=== PATIENT | female | born 1985 | race Native Hawaiian/Other Pacific Islander ===

== ENCOUNTER 2018-03-13 20:51 | Outpatient (CLI) | payer SELFPAY ==
[2018-03-13 21:30] VITALS: BP 118/64
--- NOTE | 2018-03-14 16:12 | Event Note ---
Date: 03/13/18 33 year old presented to L&D triage to rule out labor. EDC 04/04/18. EGA 36 weeks, 5 days gestation. Patient reports intermittent contractions. Patient denies vaginal bleeding or leaking of fluid. Patient reports active movement. NST reactive, category 1. Cervix 0/30/-3. Patient found not to be in labor. Patient was discharged home with labor precautions and advice to follow up with [facility] on Thursday.
== END 2018-03-13 21:54 | disposition home or self-care (01) ==
LOC: TRG 20:51 → LD 20:52 → TRG 21:54
PROVIDERS: ATTEND Obstetrics & Gynecology
DX: O47.03 False labor before 37 completed weeks of gestation, third trimester (principal); Z3A.36 36 weeks gestation of pregnancy
CPT/HCPCS: 59025

== ENCOUNTER 2018-03-24 07:32 | Inpatient (IN) | payer OTHER ==
[2018-03-24] MEDS ORDERED: PITOCin/NS 20 UNIT/1000ML DRIP 20,000 MILLIUNITS/1,000 ML BAG IV ONE (07:53)
[2018-03-24] MEDS ORDERED: LACTATED RINGERS 1,000 ML ONE (07:53)
[2018-03-24] MEDS ORDERED: MINERAL OIL ONE (07:54)
[2018-03-24] MEDS ORDERED: METHERGINE IM ONE (07:54)
[2018-03-24] MEDS ORDERED: XYLOCAINE 2% INFILTRATI ONE ×2 (07:54→09:36)
[2018-03-24] MEDS ORDERED: LACTATED RINGERS 1,000 ML IV SCH ×2 (08:30→10:00)
[2018-03-24] MEDS ORDERED: SUBLIMAZE IV NR (08:30)
[2018-03-24 08:36] LABS: Basophils % (Auto) 0.3 % (0.0-1.8); Eosinophils # (Auto) 0.1 K/mm3 (0.0-0.4); Hematocrit 34.2 % (30.3-42.9); Hemoglobin 10.5 gm/dl (10.1-14.3); Lymphocytes # (Auto) 2.5 K/mm3 (1.2-5.4); Lymphocytes % (Auto) 28.8 % (13.4-35.0); Mean Corpuscular HGB Conc 31 % (30-34); Monocytes # (Auto) 0.7 K/mm3 (0.0-0.8); Monocytes % (Auto) 7.8 % (0.0-7.3); Platelet Count 241 K/mm3 (140-440); Red Blood Count 5.11 M/mm3 (3.65-5.03)
[2018-03-24 08:48] LABS: Mean Corpuscular Hemoglobin 21 pg (28-32); Mean Corpuscular Volume 67 fl (79-97)
[2018-03-24] MEDS ORDERED: BRETHINE SUB-Q PRN (09:36)
[2018-03-24] MEDS ORDERED: BRETHINE IVP PRN (09:36)
[2018-03-24] MEDS ORDERED: MINERAL OIL PO PRN (09:36)
--- NOTE | 2018-03-24 09:43 | History and Physical Report ---
History of Present Illness Date of examination: 03/24/18 Date of admission: 03/24/18 07:42 Chief complaint: My water broke at 0630 this morning and having intense labor pains History of present illness: Early entry into care at [facility], course complicated by a abnormal 2 hour GTT; patient was keeping glucose log and following GDM Diet. Past History Past Medical History: no pertinent history Past Surgical History: no surgical history Family/Genetic History: diabetes, hypertension (mother) Social history: no significant social history - Obstetrical History Expected Date of Delivery: 04/04/18 Actual Gestation: 38 Week(s) 3 Day(s) : 3 Para: 1 Hx # Term Pregnancies: 1 Spontaneous Abortions: 1 Number of Living Children: 1 Medications and Allergies Allergies Allergy/AdvReac Type Severity Reaction Status Date / Time Penicillins Allergy Swelling Verified 02/06/14 01:02 Home Medications Medication Instructions Recorded Confirmed Last Taken Type Vits96/Iron Fum/Folic 1 each PO QDAY 02/06/14 03/08/14 03/07/14 06:00 History [ Tablet] Active Meds: Active Medications Fentanyl (Sublimaze) 100 mcg IV ONCE NR Stop: 03/24/18 10:30 Lactated Ringer's (Lactated Ringers) 1,000 mls @ 125 mls/hr IV DIRECT PATRICIA Review of Systems All systems: negative - Vital Signs Vital signs: Vital Signs Pulse BP Pulse Ox 75 132/84 99 03/24/18 07:42 03/24/18 07:42 03/24/18 07:42 Temp Pulse Resp BP Pulse Ox 97.8 F 75 18 116/77 99 03/24/18 07:54 03/24/18 09:19 03/24/18 07:54 03/24/18 09:19 03/24/18 07:54 - Physical Exam Breasts: Positive: normal Cardiovascular: Regular rate Lungs: Positive: Clear to auscultation, Normal air movement Abdomen: Positive: normal appearance, soft, normal bowel sounds Genitourinary (Female): Positive: normal external genitalia, normal perenium Vagina: Positive: normal moisture Uterus: Positive: enlarged Anus/Rectum: Positive: normal perianal skin Extremities: Positive: normal - Obstetrical FHR: category 2 Uterine Contraction Monitor Mode: External Cervical Dilatation: 9.5 (Leaking a moderat amount of clear fluid) Cervical Effacement Percentage: 100 station: -1 Uterine Contraction Pattern: Regular Uterine Tone Measurement Phase: Resting Uterine Contraction Intensity: Strong/Firm Results Result Diagrams: 03/24/18 07:50 Abnormal lab results 03/24/18 Range/Units 07:50 RBC 5.11 H (3.65-5.03) M/mm3 MCV 67 L (79-97) fl MCH 21 L (28-32) pg RDW 22.0 H (13.2-15.2) % [place] % (Auto) 7.8 H (0.0-7.3) % All other labs normal. Assessment and Plan A: IUP @38 3/7 Weeks SROM Category II Tracing GBS Negative P: Admit to L&D per Routine Orders Prepare for
[2018-03-24] MEDS ORDERED: DULCOLAX PR PRN (09:48)
[2018-03-24] MEDS ORDERED: NORCO 5/325 PO PRN (09:48)
[2018-03-24] MEDS ORDERED: BENADRYL PO PRN (09:48)
[2018-03-24] MEDS ORDERED: TUCKS PAD TP PRN (09:48)
[2018-03-24] MEDS ORDERED: SODIUM CHLORIDE FLUSH SYRINGE 10 ML IV NR (10:00)
[2018-03-24] MEDS ORDERED: PITOCin/NS 20 UNIT/1000ML DRIP 20 UNITS/1,000 ML BAG IV SCH (10:00)
--- NOTE | 2018-03-24 10:00 | Procedure Note ---
OB Delivery Note - Delivery Date of Delivery: 03/24/18 (0906) Surgeon: SHABANA LISA Estimated blood loss: other (250) - Vaginal Delivery presentation: vertex Delivery position: OA Intrapartum events: mult.variable deceleratio Delivery induction: none Delivery monitor: external FHT, external uterine Delivery placenta: spontaneous Delivery cord: nuchal cord, 3 umbilical vessels Episiotomy: none Delivery laceration: none Anesthesia: none Delivery comments: of a live 6'6 male infant over a intact perineum without pain control with Apgars of 8 and 9 at 0906 on 03/24/2018. Nuchal cord x 1 manually reduced on the perineum prior to delivery of the anterior shoulder. directly to maternal abd/chest skin to skin contact. Spontaneous delivery of placenta complete and intact with [place] side presenting at 0918. 20U of Pitocin given IM (IV access loss during 2nd stage of labor). Fundus is firm and midline located 4 below the U; Lochia is scant. Delayed cord clamping and cutting; Cord cut by Father of the Baby. Cord blood collected; Placenta to pathology. Accucheck immediately is 103; to follow GDM Diet . - Infant B at 1 minute: 8 at 5 minutes: 9 Infant Gender: Male (6'6)
[2018-03-24] MEDS: MOTRIN PO SCH ×2 (18:00→23:30)
[2018-03-24 20:48] LABS: Hemoglobin 9.3 gm/dl (10.1-14.3)
[2018-03-25] MEDS: MOTRIN PO SCH ×4 (05:22→17:54)
--- NOTE | 2018-03-25 11:31 | Progress Note ---
Assessment and Plan A: PP Day #1 Asymptomatic Anemia P: Follow Routine Orders FeSO4 325mg PO BID D/C home today per patient request RTO in 6 Weeks Subjective - Subjective Date of service: 03/25/18 Interval history: Early entry into care at [facility], course complicated by a abnormal 2 hour GTT; patient was keeping glucose log and following GDM Diet. Patient reports: appetite normal, voiding normally, pain well controlled, flatus , ambulating normally : doing well Objective - Vital Signs Latest vital signs: Vital Signs Temp Pulse Resp BP BP Pulse Ox 03/25/18 07:35 98.5 F 72 22 101/66 99 03/25/18 00:00 98.2 F 61 18 114/58 98 03/24/18 23:30 18 03/24/18 16:50 98.6 F 70 18 116/67 99 Intake and Output 03/24/18 03/25/18 03/25/18 22:59 06:59 14:59 Intake Total 120 120 120 Output Total 400 400 Balance -280 120 -280 Intake: Oral 120 120 120 Output: Urine 400 400 Void 400 200 Other: Total, Intake Amount 120 120 120 Total, Output Amount 400 200 Voiding Method Toilet # Voids 1 Void 1 1 1 # Urine Diapers 0 # Bowel Movements 0 - Exam Breasts: Present: normal Cardiovascular: Present: Regular rate Lungs: Present: Clear to auscultation, Normal air movement Abdomen: Present: normal appearance, soft, normal bowel sounds Uterus: Present: normal, firm, fundal height below umbilicus Extremities: Present: normal - Labs Labs: Abnormal lab results 03/24/18 Range/Units 20:28 Hgb 9.3 L (10.1-14.3) gm/dl Hct 30.0 L (30.3-42.9) %
--- NOTE | 2018-03-25 11:33 | Discharge Summary ---
Providers - Providers Date of Admission: 03/24/18 07:42 Date of discharge: 03/25/18 Attending physician: ELISABETH PEARCE MD Primary care physician: ELISABETH PEARCE MD Hospitalization Reason for admission: active labor Delivery: Episiotomy: none Laceration: none Other procedures: none complications: none Discharge diagnosis: IUP at term delivered [place] baby: male Condition at discharge: Good Disposition: DC-01 TO HOME OR SELFCARE Plan - Provider Discharge Summary Activity: routine, no sex for 6 weeks, no heavy lifting 4 weeks, no strenuous exercise Diet: routine Instructions: routine Additional instructions: [] Smoking cessation referral if applicable(refer to patient education folder for contact #) [] Refer to [facility] Booklet Call your doctor immediately for: * Fever > 100.5 * Heavy vaginal bleeding ( >1 pad per hour) * Severe persistent headache * Shortness of breath * Reddened, hot, painful area to leg or breast * Drainage or odor from incision. * Keep incision clean and dry at all times and follow doctor's instructions regarding bathing/showering - Follow up plan Follow up: ELISABETH PEARCE MD [Primary Care Provider] - 6 Weeks
[2018-03-25] MEDS: FEOSOL PO SCH ×2 (15:35→21:31)
[2018-03-25 16:12] VITALS: BP 104/54
== END 2018-03-25 22:35 | disposition home or self-care (01) | DRG 775 ==
LOC: TRG 07:32 → LD 07:42 → OB 11:28
PROVIDERS: ADMIT Obstetrics & Gynecology; ATTEND Obstetrics & Gynecology
PROC: 10E0XZZ Delivery of Products of Conception, External Approach (ICD-10-PCS; principal; 2018-03-24)
DX: O69.1XX0 Labor and delivery complicated by cord around neck, with compression, not applicable or unspecified (principal); O76 Abnormality in fetal heart rate and rhythm complicating labor and delivery; O99.03 Anemia complicating the puerperium; D64.9 Anemia, unspecified; Z3A.38 38 weeks gestation of pregnancy; Z37.0 Single live birth; Z82.49 Family history of ischemic heart disease and other diseases of the circulatory system; Z83.3 Family history of diabetes mellitus; Z88.0 Allergy status to penicillin
CPT/HCPCS: 36415; 82962; 85014; 85018; 85025; 86850; 86900; 86901; 88307; 99211; G0463; J2210; J2590; J7120